=== PATIENT | female | born 1985 | race Caucasian/White ===

== ENCOUNTER 2017-04-18 09:40 | Emergency (ER) | payer BC ==
[~2017-04-18] VITALS: Ht 175.3 cm; Wt 68.0 kg
[2017-04-18 09:44] VITALS: BP 112/66
[2017-04-18] MEDS ORDERED: IBUPROFEN 600 MG TABLET PO ONE ×2 (10:00→10:01)
== END 2017-04-18 11:15 | disposition home or self-care (01) ==
LOC: ER 09:43
DX: S80.812A Abrasion, left lower leg, initial encounter (principal); S00.81XA Abrasion of other part of head, initial encounter; F90.9 Attention-deficit hyperactivity disorder, unspecified type; M54.2 Cervicalgia; V43.52XA Car driver injured in collision with other type car in traffic accident, initial encounter; Y93.89 Activity, other specified; Y92.488 Other paved roadways as the place of occurrence of the external cause; Y99.8 Other external cause status
CPT/HCPCS: A4606; Z7610